=== PATIENT | male | born 1950 | race Caucasian/White ===

== ENCOUNTER 2023-09-05 09:46 | Emergency (ER) | payer MEDICARE, SELFPAY ==
[2023-09-05 09:55] VITALS: BP 179/94; PULSE 98; TEMP 36.4; O2SAT 97; BMI 25.0
--- NOTE | 2023-09-05 10:08 | XRR_ITS ---
PROCEDURE INFORMATION: Exam: XR Right Ribs with PA Chest Exam date and time: 09/05/2023 10:53 AM Age: 73 years old Clinical indication: Injury or trauma; Fall; Rib area; Blunt trauma (contusions or hematomas); Additional info: Trauma right anterolateral ribs 8-10 TECHNIQUE: Imaging protocol: Radiologic exam of the right ribs with PA chest. Views: 3 views COMPARISON: No relevant prior studies available. FINDINGS: Lungs: No focal consolidation. Pleural spaces: No large pleural effusion. No distinct pneumothorax. Heart/Mediastinum: Cardiomediastinal silhouette is midline and normal in size. Bones/joints: No obvious displaced osseous fractures. XR/XR ribs RT mn 3V w CXR1V [id number] IMPRESSION: No acute findings.
--- NOTE | 2023-09-05 10:09 | ED_ITS ---
HPI - Fall General: Chief Complaint: Fall Stated Complaint: side pain, fall Time Seen by Provider: 09/05/23 10:02 History of Present Illness: 73-year-old male presents emergency depa rtment complaining of right anterior chest pain. He reports he fell after tripping on his dog outside 5 days ago. Last night when he was moving around in bed trying to get comfortable he thought he felt his ribs popping and moving. He is localizing to the right anterior eighth through 10 rib region near the mid clavicular line to the right anterior axillary line. He reports he had a minor bump to his head but has not had any symptoms of injury outside the ribs. Pain worse with movement or deep breathing. Pain rated as moderate and increases to severe with activity Associated symptoms-after fall: Denies abdominal pain, difficulty walking, headache(s) or neck pain Review of Systems General: Reports: 10 or more systems reviewed and unremarkable except in HPI and below Const: Denies: fever(s), chills or body aches Card: Denies: edema or syncope Resp: Denies: productive cough GI: Denies: abdominal pain, nausea, vomiting or diarrhea Musc: Denies: neck pain, back pain, extremity pain or extremity swelling Skin/Breast: Denies: rash or erythema Neuro: Denies: headache(s), numbness in extremities, weakness in extremities, lack of coordination or difficulty walking Physical Exam Narrative: EXAM NARRATIVE: Tender to palpation right anterior ribs from approximately the midclavicular line to the mid axillary line on the right side, mostly ribs 8 through 10. No flail segment appreciated. Const: COMMON NORMALS: no limitations, alert and well nourished EXAM LIMITATIONS: no altered mental status HENMT: COMMON NORMALS: normocephalic HEAD & SCALP: normocephalic MOUTH: no muffled voice Eye: COMMON NORMALS: conjunctivae normal and no scleral icterus CONJUNCTIVA: Yes conjunctivae normal Neck/C-Spine: GENERAL: Yes normal visual inspection and Yes trachea midline Resp: COMMON NORMALS: normal respiratory effort and clear to auscultation bilaterally AUSCULTATION: clear to auscultation bilaterally OTHER: Splinting respirations, SpO2 99% on room air, clear to auscultation Cardio: COMMON NORMALS: regular rate RATE: regular rate Extremity: COMMON NORMALS: normal to inspection Neuro: COMMON NORMALS: moves all extremities, no focal motor deficits and no sensory deficits noted SENSORIUM/ORIENTATION: Yes alert SPEECH: speech normal Psych: COMMON NORMALS: mental status grossly normal, Normal thought process present, cooperative, normal affect and speech normal SPEECH: Yes normal speech THOUGHT PROCESS: Normal thought process present Skin: COMMON NORMALS: turgor normal and no jaundice GENERAL SKIN EXAM: turgor normal Course Vital Signs: Vital signs: Vital Signs Temperature 97.6 F 09/05/23 09:55 Pulse Rate 69 09/05/23 10:58 Respiratory Rate 18 09/05/23 10:50 Blood Pressure 160/84 09/05/23 10:58 Pulse Oximetry 100 09/05/23 10:58 Oxygen Delivery Me thod Room Air 09/05/23 10:58 MDM - Fall Medical Decision Making Differential diagnosis includes traumatic injury to the ribs (contusion, fracture), lung contusion, pleural effusion/hemothorax, pneumothorax, intercostal muscle injury, other musculoskeletal chest wall injury. Patient is satting 99% on room air. He is uncomfortable but not overtly distressed. We will provide pain medication and muscle relaxer. We will obtain an x-ray of the chest as well as a right rib series to rule out any pneumothorax, hemothorax or significant pulmonary contusion while trying to evaluate for any rib fractures. XR interpretation done by ED provider, pending radiology final review ED provider radiology interpretation(s): Sensitivity for rib fractures on chest x-ray are poor. I do not see any pneumothorax, effusion, or significantly displaced rib fracture. Final read per radiology. Discharge Plan Discharge Patient Disposition: Home Clinical Impression: Closed rib fracture Qualifiers: Encounter type: initial encounter Laterality: right Condition: Stable Prescriptions: New hydrocodone-acetaminophen 5-325 mg tablet 1 tab PO Q4H PRN (Reason: pain, severe) 5 Days Qty: 20 0RF naproxen 250 mg tablet 250 mg PO BID 7 Days Qty: 14 0RF Lidoderm 5 % adhesive patch,medicated 2 patch topical DAILY Qty: 15 0RF Rx Instructions: leave on most painful area for up to 12 hrs ondansetron 4 mg tablet,disintegrating 4 mg PO Q6H PRN (Reason: nausea and vomiting) Qty: 14 0RF Senna with Docusate Sodium 8.6-50 mg tablet 1 tab-cap PO BID PRN (Reason: constipation) Qty: 20 0RF cyclobenzaprine 5 mg tablet 5 mg PO TID PRN (Reason: muscle spasm) Qty: 20 0RF Discharge Orders: Discharge ED (Routine); Ordered 09/05/23 Ordered By: Wicho Kaiser Discharge Activity: Increase activity as tolerated Patient Instructions: Rib Fracture (ED), Opioid Safety, Pain Management Activity Restrictions/Additional Instructions: Please read all discharge instructions and abide by recommendations and return precautions. Make an appointment to follow-up with your primary care doctor as directed for follow-up. Return to ER if getting worse or other emergent sy mptoms. Do not drive or operate heavy machinery while using the muscle relaxers and/or pain medication. I have placed a referral for you so that you can establish primary care. Coding Level of Care Code ED Supervisor [employer]
[2023-09-05 10:30] VITALS: PULSE 78; RESP 18; O2SAT 97
[2023-09-05] MEDS: naproxen 500 mg Tablet 250 MG PO (10:44)
[2023-09-05 10:50] VITALS: RESP 18
[2023-09-05] MEDS: orphenadrine 30 mg/mL Inj 2 mL 60 MG IM (10:50)
[2023-09-05] MEDS: HYDROmorphone 1 mg/mL INJ 1 mL IM (10:50)
[2023-09-05 10:58] VITALS: BP 160/84; PULSE 69; O2SAT 100
[2023-09-05 11:56] VITALS: BP 138/73; PULSE 72; O2SAT 95
[2023-09-05 12:02] VITALS: BP 138/73; PULSE 72; RESP 18; TEMP 36.4; O2SAT 95
--- NOTE | 2023-09-08 07:53 | DCPLANNER ---
marge ramos [facility] ethan for er f/u and to est pcp
== END 2023-09-05 12:06 | disposition home or self-care (01) ==
PROVIDERS: Emergency Provider Emergency Medicine
DX: S22.31XA Fracture of one rib, right side, initial encounter for closed fracture (principal); W01.0XXA Fall on same level from slipping, tripping and stumbling without subsequent striking against object, initial encounter
CPT/HCPCS: 71101; 96372; 99284; J1170; J2360

== ENCOUNTER 2024-08-01 18:59 | Emergency (ER) | payer MEDICARE, SELFPAY ==
[2024-08-01 19:22] VITALS: BP 100/60; PULSE 65; RESP 16; O2SAT 99
--- NOTE | 2024-08-01 19:27 | ECG_ITS ---
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 Measurements Intervals [place] Rate: 58 P: 36 MN: 169 QRS: 16 QRSD: 94 T: 55 QT: 399 QTc: 393 Interpretive Statements SINUS BRADYCARDIA No previous ECG available for comparison Electronically Signed On 08-03-2024 06:26:54 CDT by America Lopez M.D. [email or web address]
--- NOTE | 2024-08-01 20:44 | XRR_ITS ---
PROCEDURE INFORMATION: Exam: XR Chest Exam date and time: 08/01/2024 8:47 PM Age: 74 years old Clinical indication: Other: Weakness TECHNIQUE: Imaging protocol: Radiologic exam of the chest. Views: 1 view. COMPARISON: CR (CHEST, ) 09/05/2023 10:53 AM FINDINGS: Lungs: Unremarkable. No consolidation or mass. Pleural spaces: Unremarkable. No pleural effusion. No pneumothorax. Heart/Mediastinum: Unremarkable. No cardiomegaly. Bones/joints: Unremarkable. XR/XR chest 1V portable [id number] IMPRESSION: No acute findings.
--- NOTE | 2024-08-01 20:44 | ED_ITS ---
HPI - Dizziness 2 General: Chief Complaint: Dizziness Stated Complaint: Dizzy Time Seen by Provider: 08/01/24 20:43 History of Present Illness: HPI Narrative: 74-year-old man who presents emergency r oom with lightheadedness. Says he has been out in the heat for the last couple days quite a bit and then he developed some diarrhea. Says when he stands or even when he sits he has been feeling lightheaded. His blood pressure is little soft on presentation. 100/60. No chest pain. No cough. No abdominal pain. No vomiting. Related Data Previous Rx's ?Medication ?Instructions ?Recorded cyclobenzaprine 5 mg tablet 5 mg PO TID PRN muscle spa sm #20 09/05/23 tabs lidocaine 5 % topical patch 2 patch topical DAILY #15 ea 09/05/23 (Lidoderm) ondansetron 4 mg disintegrating 4 mg PO Q6H PRN nausea and 09/05/23 tablet vomiting #14 tabs sennosides 8.6 mg-docusate sodium 1 tab-cap PO BID PRN constipation 09/05/23 50 mg tablet (Senna with Docusate #20 tabs Sodium) Allergies Allergy/AdvReac Type Severity Reaction Status Date / Time No Known Allergies Allergy Verified 09/05/23 09:59 Review of Systems 2 Narrative: Constitutional symptoms: Negative except as documented in HPI. Skin symptoms: Negative except as documented in HPI. Eye symptoms: Negative except as documented in HPI. ENMT symptoms: Negative except as documented in HPI. Respiratory symptoms: Negative except as documented in HPI. Cardiovascular symptoms: Negative except as documented in HPI. Gastrointestinal symptoms: Negative except as documented in HPI. Genitourinary symptoms: Negative except as documented in HPI. Musculoskeletal symptoms: Negative except as documented in HPI. Neurologic symptoms: Negative except as documented in HPI. Psychiatric symptoms: Negative except as documented in HPI. Endocrine symptoms: Negative except as documented in HPI. Physical Exam 2 Narrative: EXAM NARRATIVE: General: Alert, no acute distress. Skin: Warm, dry. Head: Normocephalic, atraumatic. Neck: Supple, trachea midline. Eye: Extraocular movements are intact. Ears, nose, mouth and throat: mucosa moist. Cardiovascular: Regular, Normal peripheral perfusion. Respiratory: Lungs are clear to auscultation, respirations are non-labored, breath sounds are equal, Symmetrical chest wall expansion. Gastrointestinal: Soft, Nontender, Non distended Musculoskeletal: Normal ROM, no deformity. Neurological: Alert and oriented, No focal neurological deficit observed. Psychiatric: Cooperative, appropriate mood & affect. Course 2 Vital Signs: Vital signs: Vital Signs Pulse Rate 64 08/01/24 23:00 Respiratory Rate 16 08/01/24 19:22 Blood Pressure 106/62 08/01/24 23:00 Pulse Oximetry 97 08/01/24 23:00 Oxygen Delivery Me thod Room Air 08/01/24 23:00 MDM - Dizziness Medical Decision Making Medical decision making: Differential diagnosis including but not limited to and based on the above HPI, review of systems and physical exam: for patient with complaint of dizziness: stroke, hypotension, hypertension, infection, vertigo, orthostasis Orders placed to evaluate differential diagnosis based on the above differential, HPI and physical exam EKG: Time 1926. Rate 58. Sinus bradycardia, No ST-T changes, no ectopy, normal NH & QRS intervals, This was reviewed and interpreted by myself the ER physician at 1930. Chest x-ray: No acute process. No infiltrate. No pneumothorax. This was reviewed and interpreted by myself the emergency room physician. I also reviewed the radiology report. Lab Review: Laboratory results were reviewed and interpreted by myself the emergency room physician. No leukocytosis. No anemia. Mild elevation in BUN/creatinine at 26 and 1.2 in combination with a concentrated urine at 1.032 would indicate some dehydration. Serial troponins are slightly elevated likely due to renal function but unchanged significantly. I reviewed the patient's medical record. Reexamination: Patient remained stable. No increased work of breathing. No altered mental status. No focal motor deficits. Patient says he feels better and wants to go home Assessment and plan: Dehydration Gastroenteritis ? IV fluids in the emergency room - Discharged home - Discussed plan with patient. Answered any questions. - Evaluation and treatment of this problem were appropriate in the emergency setting. Lab Data 08/01/24 21:09 08/01/24 21:09 Radiology Impressions Chest X-Ray 08/01/24 20:44 IMPRESSION: No acute findings. Laboratory Results WBC 5.64 10^3/uL (3.29-11.43) 08/01/24 21:09 RBC 4.77 10^6/uL (3.85-5.65) 08/01/24 21:09 Hgb 13.80 g/dL (11.27-16.99) 08/01/24 21:09 Hct 41.5 % (37-53) 08/01/24 21:09 MCV 87.0 fl (82-101) 08/01/24 21:09 MCH 28.9 pg (27-33) 08/01/24 21:09 MCHC 33.3 g/dL (30-55) 08/01/24 21:09 RDW 13.1 % (12.1-15.1) 08/01/24 21:09 Plt Count 202 10^3/cmm (157-399) 08/01/24 21:09 MPV 10.5 fL (7.4-10.4) H 08/01/24 21:09 Neut % (Auto) 66.3 % 08/01/24 21:09 Lymph % (Auto) 20.7 % 08/01/24 21:09 Arthur % (Auto) 11.2 % 08/01/24 21:09 Eos % (Auto) 0.9 % 08/01/24 21:09 Baso % (Auto) 0.5 % 08/01/24 21:09 Neut # (Auto) 3.74 10^3/uL (1.8-7.7) 08/01/24 21:09 Lymph # (Auto) 1.2 10^3/uL (0.8-4.8) 08/01/24 21:09 Arthur # (Auto) 0.6 10^3/uL (0.2-0.9) 08/01/24 21:09 Eos # (Auto) 0.1 10^3/uL (0.0-0.8) 08/01/24 21:09 Baso # (Auto) 0.0 10^3/uL (0.0-0.1) 08/01/24 21:09 Nucleated RBC % (auto) 0 % 08/01/24 21:09 Nucleated RBCs # 0.0 /100WBC 08/01/24 21:09 Sodium 140 mmol/L (136-145) 08/01/24 21:09 Potassium 4.3 mmol/L (3.5-5.1) 08/01/24 21:09 Chloride 103 mmol/L (98-107) 08/01/24 21:09 Carbon Dioxide 27 mmol/L (22-29) 08/01/24 21:09 Anion Gap 14.3 (5-19) 08/01/24 21:09 BUN 26 mg/dL (8-23) H 08/01/24 21:09 Creatinine 1.2 mg/dL (0.7-1.2) 08/01/24 21:09 GFR Calculation Not Reportable 08/01/24 21:09 Glucose 127 mg/dL (65-115) H 08/01/24 21:09 Calculated Osmolality 296 mOsm/kg (285-295) H 08/01/24 21:09 Lactic Acid 0.9 mmol/L (0.5-2.2) 08/01/24 21:09 Calcium 9.2 mg/dL (8.5-10.5) 08/01/24 21:09 Total Bilirubin 0.2 mg/dL (0.15-1.2) 08/01/24 21:09 AST 24 U/L (0-40) 08/01/24 21:09 ALT 17 U/L (0-41) 08/01/24 21:09 Alkaline Phosphatase 90 U/L (40-130) 08/01/24 21:09 Troponin T Baseline 31 ng/L (0-15) H 08/01/24 21:09 Troponin T 120 Minute 22.38 ng/L (0-15) H 08/01/24 22:36 Delta Troponin T -8.62 ABS# (0-10) L 08/01/24 22:36 Total Protein 6.1 g/dL (6.6-8.7) L 08/01/24 21:09 Albumin 4.1 g/dL (3.5-5.2) 08/01/24 21: Globulin 2.0 g/dL (1.3-4.6) 08/01/24 21:09 Urine Color Dark yellow (Yellow) A 08/01/24: Urine Appearance Cloudy (CLEAR) A 08/01/24: Urine pH 5.0 (5-7) 08/01/24: Ur Specific [place] 1.032 (1.005-1.030) H 08/01/24: Urine Protein 1+ (Negative) A 06/17/25 22:25 Urine Glucose (UA) Negative (Normal) 08/01/24 22:25 Urine Ketones 1+ (Negative) H 08/01/24 22:25 Urine Blood Negative (Negative) 08/01/24: Urine Nitrate Negative (Negative) 08/01/24 22:25 Urine Bilirubin 1+ (Negative) H 08/01/24 22:25 Urine Urobilinogen 1.0 mg/dL (Negative) 08/01/24 22: Ur Leukocyte Esterase Trace (Negative) A 08/01/24 22:25 Urine RBC 0-2 /hpf (0-2) 08/01/24 22: Urine WBC 0-5 /hpf (0-5) 08/01/24 22: Ur Squamous Epith Cells 11-20 /hpf (0-5) H 08/01/24: Amorphous Sediment Not Reportable 08/01/24 22: Urine Bacteria None seen /hpf (NONE) 08/01/24: Hyaline Casts 151.84 /lpf 08/01/24 22:25 All radiology interpretation(s) finalized by discharge Discharge Plan Discharge Patient Disposition: Home Clinical Impression: Dehydration, Orthostasis Condition: Stable Prescriptions: No Action Lidoderm 5 % adhesive patch,medicated 2 patch topical DAILY Qty: 15 0RF Rx Instructions: leave on most painful area for up to 12 hrs ondansetron 4 mg tablet,disintegrating 4 mg PO Q6H PRN (Reason: nausea and vomiting) Qty: 14 0RF Senna with Docusate Sodium 8.6-50 mg tablet 1 tab-cap PO BID PRN (Reason: constipation) Qty: 20 0RF cyclobenzaprine 5 mg tablet 5 mg PO TID PRN (Reason: muscle spasm) Qty: 20 0RF Discharge Orders: Discharge ED (Routine); Ordered 08/01/24 Ordered By: Chinyere Tracy Discharge Diet: Usual diet Discharge Activity: Increase activity as tolerated Patient Instructions: Dehydration (ED), Opioid Safety, Pain Management Activity Restrictions/Additional Instructions: Thank you for choosing [facility] for your healthcare needs today. You have been screened and evaluated and felt safe for discharge. Health conditions do change or evolve sometimes and as such it is important that you follow up with your Primary Doctor to be re checked, 3-5 days is a general good time frame for follow up. You are always welcome to return to the ED for re assessment if your symptoms are worsening or you have new concerns Print Language: Pashto Coding Level of Care Code ED Gymn[employer]
[2024-08-01] MEDS: sodium chloride 0.9% 1,000 ML 999 ML IV (21:11)
[2024-08-01 21:13] VITALS: BP 103/64; PULSE 52; O2SAT 99
--- NOTE | 2024-08-01 21:17 | ECG_ITS ---
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 Measurements Intervals [place] Rate: 53 P: 35 WI: 178 QRS: 15 QRSD: 88 T: 46 QT: 421 QTc: 395 Interpretive Statements SINUS BRADYCARDIA No previous ECG available for comparison Electronically Signed On 08-03-2024 06:08:23 CDT by America Lopez M.D. [email or web address] [id number]
[2024-08-01 21:34] LABS: Basophils % 0.5 %; Eosinophils # 0.1 10^3/uL (0.0-0.8); Eosinophils % 0.9 %; Hematocrit 41.5 % (37-53); Lymphocytes # 1.2 10^3/uL (0.8-4.8); Lymphocytes % 20.7 %; Mean Corpuscular HGB Conc 33.3 g/dL (30-55); Mean Corpuscular Hemoglobin 28.9 pg (27-33); Mean Platelet Volume 10.5 fL (7.4-10.4); Monocytes # 0.6 10^3/uL (0.2-0.9); Monocytes % 11.2 %; Neutrophils # 3.74 10^3/uL (1.8-7.7); Neutrophils % 66.3 %; Nucleated Red Blood Cells % 0 %; Platelet Count 202 10^3/cmm (157-399); Red Blood Count 4.77 10^6/uL (3.85-5.65); Red Cell Distribution Width 13.1 % (12.1-15.1); White Blood Count 5.64 10^3/uL (3.29-11.43)
[2024-08-01 21:53] LABS: Troponin(5th) Baseline 31 ng/L (0-15)
[2024-08-01 21:55] LABS: Alanine Aminotransferase 17 U/L (0-41); Albumin Level 4.1 g/dL (3.5-5.2); Alkaline Phosphatase 90 U/L (40-130); Anion Gap 14.3 (5-19); Aspartate Amino Transferase 24 U/L (0-40); Blood Urea Nitrogen 26 mg/dL (8-23); Calcium 9.2 mg/dL (8.5-10.5); Carbon Dioxide 27 mmol/L (22-29); Chloride 103 mmol/L (98-107); Creatinine Clr Calc Pharmacy 62.9545; Glucose 127 mg/dL (65-115); Lactic Sepsis W/Reflex 0.9 mmol/L (0.5-2.2); Osmolality Calculated 296 mOsm/kg (285-295); Potassium 4.3 mmol/L (3.5-5.1); Sodium 140 mmol/L (136-145); Total Bilirubin 0.2 mg/dL (0.15-1.2); Total Protein 6.1 g/dL (6.6-8.7)
[2024-08-01 22:00] VITALS: BP 111/67; PULSE 50; O2SAT 97
[2024-08-01 22:34] LABS: Bilirubin Urine 1+ (Negative); Blood Urine Negative (Negative); Glucose Urine UA Negative (Normal); Ketones Urine 1+ (Negative); Leukocyte Esterase Urine Trace (Negative); Nitrate Urine Negative (Negative); Protein Urine 1+ (Negative); Urine Appearance Cloudy (CLEAR); Urine Color Dark Yellow (Yellow)
[2024-08-01 22:39] LABS: Bacteria Urine None Seen /hpf; Hyaline Casts Urine 151.84 /lpf; RBC Urine 0-2 /hpf (0-2); WBC Urine 0-5 /hpf (0-5)
--- NOTE | 2024-08-01 22:44 | ECG_ITS ---
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 Measurements Intervals [place] Rate: 58 P: 27 NE: 180 QRS: 47 QRSD: 90 T: 30 QT: 407 QTc: 400 Interpretive Statements SINUS BRADYCARDIA Compared to ECG 08/01/2024 21:17:03 No significant changes Electronically Signed On 08-03-2024 06:26:08 CDT by America Lopez M.D. [email or web address]
--- NOTE | 2024-08-01 22:50 | PC.NURSE ---
pt states he feels much better after iv fluids.
[2024-08-01 22:59] VITALS: BP 109/62; PULSE 67; O2SAT 97
[2024-08-01 23:00] VITALS: BP 106/62; PULSE 64; O2SAT 97
[2024-08-01 23:07] LABS: Troponin 5 2HR 22.38 ng/L (0-15)
[2024-08-01 23:22] LABS: Troponin 5 2HR Delta -8.62 ABS# (0-10)
[2024-08-01 23:29] LABS: Add Urine Culture? No; Specific Gravity, Urine 1.032 (1.005-1.030); UA Slide Review UA Slide Review Perf
[2024-08-01 23:37] VITALS: BP 136/78; PULSE 74; O2SAT 97
== END 2024-08-01 23:38 | disposition home or self-care (01) ==
PROVIDERS: Emergency Medicine; Emergency Provider Emergency Medicine
DX: E86.0 Dehydration (principal); I95.1 Orthostatic hypotension
CPT/HCPCS: 36415; 71045; 80053; 81001; 83605; 84484; 85025; 87040; 93005; 96360; 96361; 99285; J7030